=== PATIENT | female | born 1985 | race Caucasian/White ===

== ENCOUNTER 2018-06-17 23:33 | Inpatient (IN) | payer OTHER ==
[~2018-06-17] VITALS: Ht 175.3 cm; Wt 84.8 kg
[2018-06-18 00:29] VITALS: BP 150/72
[2018-06-18 01:07] LABS: ABSOLUTE BASOPHIL COUNT 0 /CUMM (0.0-0.2); ABSOLUTE EOSINOPHIL COUNT 0.1 /CUMM (0.0-0.7); ABSOLUTE GRANULOCYTE CT 5.6 /CUMM (1.4-6.5); ABSOLUTE LYMPH COUNT 1.7 /CUMM (1.2-3.4); ABSOLUTE MONOCYTE COUNT 0.5 /CUMM (0.10-0.60); BASOPHIL % 0.3 % (0.0-2.0); EOSINOPHIL % 0.6 % (0-5); GRANULOCYTE % 71.7 % (42.2-75.2); HEMATOCRIT 35.1 % (37-47); MEAN CORPUSCULAR HGB 31.1 PG (27.0-31.0); MEAN CORPUSCULAR HGB CONC 34.9 G/DL (33.0-37.0); MEAN CORPUSCULAR VOLUME 89.1 FL (81.0-99.0); MEAN PLATELET VOLUME 9.2 FL (7.4-10.4); PLATELET COUNT 153 /CUMM (130-400); RBC DISTRIBUTION WIDTH 12.7 % (11.5-14.5); RED BLOOD CELL CT 3.94 /CUMM (4.20-5.40); WHITE BLOOD CELL COUNT 7.9 /CUMM (4.8-10.8)
--- NOTE | 2018-06-18 10:11 | History & Physical ---
General Information and HPI MD Statement: I have seen and personally examined MICHAEL WALTERS and documented this H& P. Source of Information: patient, old records Exam Limitations: no limitations History of Present Illness: The patient is a 32 year old at 40 weeks and 6 days gestation who presented with a chief complaint of LOF, clr, 530p. Mild ctx since 10p, no vb. + FM. GBS neg. AP care c/b elevated msafp, nl anatomy sono. Elevated GCT, nl GTT. 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 No Contractions: irreg q 5- 10 #1 - FHR Baseline: 120 Category: 1 Estimated Weight: 3400 Presentation: vtx Patient for Induction? No Physical Exam: nad abd soft nt gravid Labs Blood Type & Rh: A pos Antibody Screen: neg Hct/Hgb & Platelets #1: 12.2/ 38, 190 Hct/Hgb & Platelets #2: 11.1/ 35.3, 169 Rubella: non immune VDRL #1: neg VDRL #2: neg HbsAg: neg HIV #1: neg HIV #2 neg 1 Hr P 3 Hr P/ 92/ 96/ 79 Group B Strep: neg Initial Ultrasound: 11/01/17 siup 8+2 Anatomy Ultrasound: 01/24 nl anne Ultrasound for EFW: 05/18 36+3,63% Genetic Testing: nl cffdna elevated msafp s/p mfm c/s, declines amnio, nl anne CF neg SMA neg Last 24 Hrs of Labs/Tra: Laboratory Tests 06/18/18 0030: Ur Random Creatinine 32.8, U Random Total Protein 12, Protein/Creatinin Ratio 0.3 H 06/18/18 0030: Estimated GFR > 60, Uric Acid 5.7, AST 39 H, ALT 30, Lactate Dehydrogenase 434, CBC w Diff NO MAN DIFF REQ, RBC 3.94 L, MCV 89.1, MCH 31.1 H, MCHC 34.9, RDW 12.7, MPV 9.2, Gran % 71.7, Lymphocytes % 21.5, Monocytes % 5.9, Eosinophils % 0.6, Basophils % 0.3, Absolute Granulocytes 5.6, Absolute Lymphocytes 1.7, Absolute Monocytes 0.5, Absolute Eosinophils 0.1, Absolute Basophils 0, Urine Color YEL, Urine Clarity CLEAR, Urine pH 6.0, Ur Specific [place] 1.010, Urine Protein NEG, Urine Ketones NEG, Urine Nitrite NEG, Urine Bilirubin NEG, Urine Urobilinogen 0.2, Ur Leukocyte Esterase NEG, Ur Microscopic SEDIMENT EXAMINED, Urine RBC 1-3, Ur Epithelial Cells FEW, Urine Hemoglobin SMALL H, Urine Glucose NEG 06/17/18 2340: Membrane Rupture POSITIVE Assessment/Plan Assessment/Plan: 32yo P0 @ 40+6 wks PROM 530p, GBS neg. Elevated msafp, nl anne. BP mildly elevated and elevated upcr, asymptomatic, possible pec without severe features. and maternal status reassuring. -Admit -start pitocin -monitoring -watch for s/sx pec -ANSVD As Ranked By This Provider Problem List: 1. Core Measures Venous Thromboembolism VTE Risk Factors / No Mechanical VTE Prophylaxis d/t LowRisk-No Interven Req'd No VTE Pharm Prophylaxis d/t LowRisk-No Interven Req'd
--- NOTE | 2018-06-18 14:32 | PN- OBGYN ---
Surgical Brief Attending Note Brief Attending Note: pt comfortable w/ epidural afeb, v/ss fht 120s moderate variability +acc 1 dec x 90sec when nathan placed, resolved spont toco q 2-3 sve /-2 per RN pit@6mu P0 40+6wks prom 530p, GBS neg, on pit, and maternal status reassuring -cont current mgmt
--- NOTE | 2018-06-18 16:13 | PN- OBGYN ---
Surgical Brief Attending Note Brief Attending Note: pt c/o increasing ctx pain and vaginal pressure afeb, 170 / 80 (with ctx) fht 110s moderate variability +acc no dec toco q 2 sve /-1 pit@ 6mu P0 40+6 prom 530p 06/17, on pit, GBS neg, and maternal status reassuring -titrate pitocin per protocol -anesthesia for top-off -ANSVD
--- NOTE | 2018-06-18 18:39 | Labor & Delivery Summary ---
Delivery Summary Vaginal Delivery: Vaginal: spontaneous Episiotomy/Lacerations: Type: 2nd deg and periurethral Repair: 2-0 and 3-0 luis miguel Anesthesia: epidural and local nesicaine Placenta: Placenta: spontanteous, normal, 3 vessel, abnormal, calcified, delayed delivery at 34 min Anesthesia: block Cord PH Value: luis manuel - 7.24 Baby's Weight: 3535 gr Apgars - 1 Min: 9 Apgars - 5 Min: 9 Additional Comments: Pt FD / +2 and pushing w/ epidural. Controlled of live male, apg 9/, wt 7# 13. Head del over perineum from JW. Mouth and nose bulb suctioned. Body delivered w/o difficulty. Baby to mom's chest. Cord clamped and cut. Cord gases sent. 3vc plac del manually intact after 34 min. Appeared very calcified. Fundus contracted. 2nd deg lac and periurethral lacs repaired usual fasion 2-0 and 3-0 luis miguel. Excellent hemostasis. Pt nusrat well. EBL 400cc. Placenta to path.
[2018-06-19 09:26] LABS: ABSOLUTE BASOPHIL COUNT 0 /CUMM (0.0-0.2); ABSOLUTE EOSINOPHIL COUNT 0 /CUMM (0.0-0.7); ABSOLUTE GRANULOCYTE CT 9.3 /CUMM (1.4-6.5); ABSOLUTE LYMPH COUNT 1.8 /CUMM (1.2-3.4); ABSOLUTE MONOCYTE COUNT 0.6 /CUMM (0.10-0.60); BASOPHIL % 0.3 % (0.0-2.0); EOSINOPHIL % 0.3 % (0-5); GRANULOCYTE % 78.8 % (42.2-75.2); HEMATOCRIT 34.9 % (37-47); MEAN CORPUSCULAR HGB CONC 34.1 G/DL (33.0-37.0); MEAN PLATELET VOLUME 9.4 FL (7.4-10.4); PLATELET COUNT 148 /CUMM (130-400); RBC DISTRIBUTION WIDTH 12.7 % (11.5-14.5); RED BLOOD CELL CT 3.84 /CUMM (4.20-5.40); WHITE BLOOD CELL COUNT 11.7 /CUMM (4.8-10.8)
--- NOTE | 2018-06-19 13:52 | PN- OBGYN ---
Surgical Brief Attending Note Brief Attending Note: pt feeling well. pain well controlled w/ motrin. +bf. amb / void / nusrat po. no garcia / cp / sob. afeb, v/ss nad abd soft nt ff becky mod lochia ext nt no ed hct 35--> 34 a/p ppd 1 s/p , doing well - circ performed -cont routine pp care -ant d/c home van
[2018-06-20] MEDS ORDERED: IBUPROFEN800 M1 PO (08:59)
--- NOTE | 2018-06-20 09:09 | PN- OBGYN ---
Surgical Brief Attending Note Brief Attending Note: PPD#2 pt is resting in bed, no complaints, tolerate diet, void without difficulties, ambulating well PE: VSS CV RRR Lungs CTA B/L Abdomen: gravid, soft, nontender, uterus firm, fundus below umbilicus. lochia mild Ext: DCT (-) A/P: 32 yo, s/p ,PPD #2 1. encourage ambulation and 2. pain management as needed 3. will d/c home, f/u in office in 2 wks and 6 wks, discharge instructions given , she understand.
== END 2018-06-20 11:35 | DRG 774 ==
LOC: CBCO 23:33 → GNO 06-18 00:23
PROVIDERS: Obstetrics & Gynecology
PROC: 10E0XZZ Delivery of Products of Conception, External Approach (ICD-10-PCS; principal; 2018-06-18)
PROC: 0UQMXZZ Repair Vulva, External Approach (ICD-10-PCS; principal; 2018-06-18)
PROC: 0KQM0ZZ Repair Perineum Muscle, Open Approach (ICD-10-PCS; principal; 2018-06-18)
DX: O70.1 Second degree perineal laceration during delivery (principal); O10.92 Unspecified pre-existing hypertension complicating childbirth; Z37.0 Single live birth; O71.82 Other specified trauma to perineum and vulva; Z3A.40 40 weeks gestation of pregnancy
CPT/HCPCS: GNOP; GNOS; 36415; 81001; 82570; 84112; 87086; J7120